=== PATIENT | male | born 1990 | race Two or more races ===

== ENCOUNTER 2019-12-09 02:43 | Emergency (ER) | payer BC ==
[2019-12-09] MEDS ORDERED: Acetaminophen 500 MG Tab PO ONE (03:01)
[2019-12-09] MEDS ORDERED: Ketorolac 60 MG/2 ML SDV IM ONE (03:05)
--- NOTE | 2019-12-09 03:08 | EDM.PDOC ---
ED HPI GENERAL MEDICAL PROBLEM - General Chief Complaint: General Stated Complaint: FLU SYMPTOMS Time Seen by Provider: 12/09/19 03:00 - History of Present Illness INITIAL COMMENTS - FREE TEXT/NARRATIVE: HISTORY AND PHYSICAL: History of present illness: The patient is a 29-year-old male who did not get his influenza shot and who presents with 1-1/2 days of diffuse body aches and pains sore throat occasional cough congestion and fevers. He has been taking Tylenol and ibuprofen and he does not feel like the fever is breaking. He last took Tylenol and ibuprofen about 8 PM, approximately 7 hours ago. He says he has been trying to push hydration and is not having abdominal pain vomiting or diarrhea. Review of systems: As per history of present illness and below otherwise all systems reviewed and negative. Past medical history: As per history of present illness and as reviewed below otherwise noncontributory. Surgical history: As per history of present illness and as reviewed below otherwise noncontributory. Social history: No reported history of drug or alcohol abuse. Family history: As per history of present illness and as reviewed below otherwise noncontributory. Physical exam: General: Well-developed well-nourished man who is nontoxic and vital signs are noted by me HEENT: Atraumatic, normocephalic, pupils reactive, negative for conjunctival pallor or scleral icterus, mucous membranes moist, throat clear of exudates but there is oropharyngeal erythema without cervical adenopathy or nuchal rigidity, neck supple, nontender, trachea midline. Lungs: Clear to auscultation, breath sounds equal bilaterally, chest nontender. No wheezing stridor or work of breathing Heart: S1S2, regular rhythm and slightly tachycardic rate on my evaluation no overt murmurs Abdomen: Soft, nondistended, nontender. Negative for masses or hepatosplenomegaly. Negative for costovertebral tenderness. Pelvis: Deferred Genitourinary: Deferred. Rectal: Deferred. Extremities: Atraumatic, negative for cords or calf pain. Neurovascular unremarkable. Neuro: Awake, alert, oriented. Cranial nerves II through XII unremarkable. Cerebellum unremarkable. Motor and sensory unremarkable throughout. Exam nonfocal. Diagnostics: Rapid strep influenza Therapeutics: P.o. fluids Tylenol Toradol Impression: Influenza A Definitive disposition and diagnosis as appropriate pending reevaluation and review of above. Throat Pain Score (Numeric/FACES): 4 - Related Data Allergies Allergy/AdvReac Type Severity Reaction Status Date / Time No Known Allergies Allergy Verified 12/09/19 03:05 Home Meds: Home Meds . [No Known Home Meds] 12/09/19 [History] Past Medical History HEENT History: Reports: None Cardiovascular History: Reports: None Respiratory History: Reports: None Gastrointestinal History: Reports: None Genitourinary History: Reports: None Musculoskeletal History: Reports: None Neurological History: Reports: None Psychiatric History: Reports: None Endocrine/Metabolic History: Reports: None Hematologic History: Reports: None Immunologic History: Reports: None Oncologic (Cancer) History: Reports: None Dermatologic History: Reports: None - Infectious Disease History Infectious Disease History: Reports: None - Past Surgical History Head Surgeries/Procedures: Reports: None HEENT Surgical History: Reports: Naso-Sinus Surgery Social & Family History - Family History Family Medical History: Noncontributory - Caffeine Use Caffeine Use: Reports: Coffee ED ROS GENERAL - Review of Systems Review Of Systems: Comprehensive ROS is negative, except as noted in HPI. ED EXAM, GENERAL - Physical Exam Exam: See Below (See dictation) Course - Vital Signs Last Recorded V/S: Last Vital Signs Temp 38.3 C H 12/09/19 03:28 Pulse 109 H 12/09/19 03:01 Resp 20 12/09/19 03:01 BP 123/65 12/09/19 03:01 Pulse Ox 94 L 12/09/19 03:01 - Orders/Labs/Meds Orders: Active Orders 24 hr Category Date Time Status CULTURE STREP A CONFIRMATION [RM] Stat Lab 12/09/19 02:57 Results STREP SCRN A RAPID W CULT CONF [RM] Stat Lab 12/09/19 02:57 Results Meds: Medications Discontinued Medications Generic Name Dose Route Start Last Admin Trade Name Freq PRN Reason Stop Dose Admin Acetaminophen 1,000 mg 12/09/19 03:01 12/09/19 03:28 Tylenol Extra Strength PO 12/09/19 03:02 1,000 mg ONETIME ONE Administration Ketorolac Tromethamine 60 mg 12/09/19 03:05 12/09/19 03:28 Toradol IM 12/09/19 03:06 60 mg ONETIME ONE Administration Departure - Departure Time of Disposition: 03:47 Disposition: Home, Self-Care 01 Condition: Good Clinical Impression: Influenza A - Discharge Information Referrals: PCP,None [Primary Care Provider] - Forms: ED Department Discharge Additional Instructions: The following information is given to patients seen in the emergency department who are being discharged to home. This information is to outline your options for follow-up care. We provide all patients seen in our emergency department with a follow-up referral. The need for follow-up, as well as the timing and circumstances, are variable depending upon the specifics of your emergency department visit. If you don't have a primary care physician on staff, we will provide you with a referral. We always advise you to contact your personal physician following an emergency department visit to inform them of the circumstance of the visit and for follow-up with them and/or the need for any referrals to a consulting specialist. The emergency department will also refer you to a specialist when appropriate. This referral assures that you have the opportunity for followup care with a specialist. All of these measure are taken in an effort to provide you with optimal care, which includes your followup. Under all circumstances we always encourage you to contact your private physician who remains a resource for coordinating your care. When calling for followup care, please make the office aware that this follow-up is from your recent emergency room visit. If for any reason you are refused follow-up, please contact the [facility] emergency department at and ask to speak to the emergency department charge nurse. [facility] Primary care- Internal [place] [address] Push hydration and use Tylenol, 1000 mg or 2 extra strength every 6 hours, and Motrin 800 mg every 8 hours for fever management. Rest and please call and schedule a follow-up appoint in the clinic for reevaluation and further care. Your prescription for Tamiflu keeping in mind that this is not a cure for influenza but will shorten the duration and severity of your symptoms. Sepsis Event Note - Evaluation Sepsis Screening Result: No Definite Risk - Focused Exam Vital Signs: Vital Signs Temp Temp Pulse Resp BP Pulse Ox 12/09/19 03:28 38.3 C H 12/09/19 03:01 38.3 C H 109 H 20 123/65 94 L Date Exam was Performed: 12/09/19 Time Exam was Performed: 03:46 - My Orders Last 24 Hours: My Active Orders 12/09/19 02:57 CULTURE STREP A CONFIRMATION [RM] Stat STREP SCRN A RAPID W CULT CONF [RM] Stat - Assessment/Plan Last 24 Hours: My Active Orders 12/09/19 02:57 CULTURE STREP A CONFIRMATION [RM] Stat STREP SCRN A RAPID W CULT CONF [RM] Stat
== END 2019-12-09 04:06 | disposition home or self-care (01) ==
LOC: MW.ED 02:43
DX: J10.1 Influenza due to other identified influenza virus with other respiratory manifestations (principal)
CPT/HCPCS: 87081; 87804; 87880; 96372; 99283; A9270; J1885

== ENCOUNTER 2020-12-31 09:34 | Emergency (ER) | payer BC ==
--- NOTE | 2020-12-31 09:37 | EDM.PDOC ---
ED HPI GENERAL MEDICAL PROBLEM - General Stated Complaint: SWELLING LT EYE Time Seen by Provider: 12/31/20 09:35 Source of Information: Reports: Patient History Limitations: Reports: No Limitations - History of Present Illness INITIAL COMMENTS - FREE TEXT/NARRATIVE: 30-year-old male presents for left eye swelling/facial pain x4 days. Patient is a good historian. 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 He notes that he has not had any long-term issues with us other than sometimes the left side of his face gets very cold when he is outside due to the metal. He notes that for the last 4 days he has had a mild pain worse with extraocular movements in his left forehead tracking into his left nose and left maxillary face. He is also noticed mild swelling particularly of his left upper eyelid. He denies any sort of nasal congestion, eye discharge or crustiness. He notes that he was using his 's spray decongestant which seem to be helping initially but then the swelling got worse yesterday so he discontinued it. He denies any fevers or any other systemic symptoms. He states due to his history of cancer and facial reconstruction he is concerned about some sort of growth and is requesting advanced imaging. Left Eye Pain Score (Numeric/FACES): 3 - Related Data Allergies Allergy/AdvReac Type Severity Reaction Status Date / Time No Known Allergies Allergy Verified 12/31/20 09:55 Home Meds: Home Meds Amoxicillin/Potassium Clav [Augmentin 875-125 Tablet] 1 each PO BID #14 tablet 12/31/20 [Rx] Past Medical History HEENT History: Reports: None Cardiovascular History: Reports: None Respiratory History: Reports: None Gastrointestinal History: Reports: None Genitourinary History: Reports: None Musculoskeletal History: Reports: None Other Musculoskeletal History: R wrist sx Neurological History: Reports: None Psychiatric History: Reports: None Endocrine/Metabolic History: Reports: None Hematologic History: Reports: None Immunologic History: Reports: None Oncologic (Cancer) History: Reports: None Dermatologic History: Reports: None - Infectious Disease History Infectious Disease History: Reports: None - Past Surgical History Head Surgeries/Procedures: Reports: None HEENT Surgical History: Reports: Naso-Sinus Surgery Social & Family History - Family History Family Medical History: No Pertinent Family History - Caffeine Use Caffeine Use: Reports: Coffee ED ROS GENERAL - Review of Systems Review Of Systems: Comprehensive ROS is negative, except as noted in HPI. ED EXAM, GENERAL - Physical Exam Exam: See Below Exam Limited By: No Limitations General Appearance: Alert, WD/WN, No Apparent Distress Eye Exam: Bilateral Eye: EOMI, Foreign Body (none identified), PERRL Nose: Normal Inspection Throat/Mouth: Normal Voice, No Airway Compromise Head: Atraumatic, Normocephalic, Other (TTP of left frontal sinus, left maxillary sinus, very mild swelling of L upper eyelid without erythema or warmt h) Neck: Normal Inspection, Supple Respiratory/Chest: No Respiratory Distress, Lungs Clear, Normal Breath Sounds, No Accessory Muscle Use Cardiovascular: Normal Peripheral Pulses, Regular Rate, Rhythm Extremities: Normal Inspection Neurological: Alert, Normal Gait Psychiatric: Normal Affect, Normal Mood Skin Exam: Warm, Dry, Intact, Normal Color Course - Vital Signs Last Recorded V/S: Last Vital Signs Temp 97.2 F 12/31/20 09:55 Pulse 67 12/31/20 10:57 Resp 16 12/31/20 10:57 BP 133/90 12/31/20 10:57 Pulse Ox 97 12/31/20 10:57 - Orders/Labs/Meds Orders: Active Orders 24 hr Category Date Time Status Maxillofacial with CM [Max Facial Sinus w Cont] [CT] Exams 12/31/20 10:02 T anna Stat Labs: Laboratory Tests 12/31/20 12/31/20 Range/Units 10:12 10:12 WBC 8.09 (4.0-11.0) K/uL RBC 5.18 (4.50-5.90) M/uL Hgb 15.2 (13.0-17.0) g/dL Hct 44.3 (38.0-50.0) % MCV 85.5 (80.0-98.0) fL MCH 29.3 (27.0-32.0) pg MCHC 34.3 (31.0-37.0) g/dL RDW Std Deviation 40.2 (28.0-62.0) fl RDW Coeff of Tan 13 (11.0-15.0) % Plt Count 201 (150-400) K/uL MPV 9.60 (7.40-12.00) fL Nucleated RBC % 0.0 /100WBC Nucleated RBCs # 0 K/uL Sodium 142 (136-148) mmol/L Potassium 4.0 (3.5-5.1) mmol/L Chloride 105 (98-107) mmol/L Carbon Dioxide 24.1 (21.0-32.0) mmol/L BUN 13 (7.0-18.0) mg/dL Creatinine 0.8 (0.8-1.3) mg/dL Est Cr Clr Drug Dosing 149.81 mL/min Estimated GFR (MDRD) > 60.0 ml/min Glucose 100 (74-106) mg/dL Calcium 8.7 (8.5-10.1) mg/dL Meds: Medications Discontinued Medications Generic Name Dose Route Start Last Admin Trade Name Miles PRN Reason Stop Dose Admin Iopamidol 100 ml 12/31/20 10:57 12/31/20 10:57 Isovue-370 (76%) IVPUSH 12/31/20 10:58 100 ml ONETIME ONE Administration - Re-Assessments/Exams Free Text/Narrative Re-Assessment/Exam: 12/31/20 10:09 We will get basic labs, will get CT max face to evaluate for periorbital versus orbital cellulitis versus mass. If all of patient's labs and images are grossly unremarkable I will discharge patient with a prescription for Augmentin to treat for preorbital cellulitis and recommend that he follow-up with a specialist for further work-up if symptoms do not improve after course of antibiotics. 12/31/20 11:16 Labs look unremarkable. We will follow-up CT imaging and disposition accordingly. Departure - Departure Time of Disposition: 11:40 Disposition: Home, Self-Care 01 Condition: Good Clinical Impression: Mucocele of frontal sinus Sinusitis Qualifiers: Sinusitis location: frontal Chronicity: acute Recurrence: non-recurrent Qualified Code(s): J01.10 - Acute frontal sinusitis, unspecified - Discharge Information Prescriptions: Amoxicillin/Potassium Clav [Augmentin 875-125 Tablet] 1 each PO BID #14 tablet Instructions: Sinusitis, Adult, [id number] Referrals: PCP,None [Primary Care Provider] - Additional Instructions: You were labs are normal. Your CT scan report has been provided in your discharge paperwork. The radiologist does see areas of soft tissue inflammation which can be caused by an infection like sinusitis. For this reason you were given an antibiotic called Augmentin that you should try for the next week. However the soft tissue stranding is not entirely consistent with an infection. You also have areas of soft tissue that seem to be protruding into your left orbit which are the bones that hold your eyes. According to the radiologist this is most consistent with a mucocele. A mucocele is an overgrowth of the sinuses into an area that they should not be. This is likely due to your prior history of surgery. These are often very slow-growing and are not usually associated with cancer. This does need to be further evaluated as they may need to be surgically removed and can cause problems with your eye including loss of mobility and loss of vision in the eye. You will likely need an MRI to better characterize exactly what these growths are and to help the doctor determine whether or not you will need surgery. You will need to follow-up with an salvage determiner within the next week. If you develop inability to move your eye or loss of vision in the eye then you should come back to the emergency department. We do have an salvage determiner, Dr. Clif Rodriguez, here in [place] who is usually good about getting in our ER patients. His information has been provided below. This may end up being too specialized case for him, but he will likely be able to at least get the MRI and get the work-up started. You may n eed to go to a tertiary care center for specialist evaluation considering the uniqueness of your case. Dr. Clif Rodriguez MD Opthalmology [phone] [place] [address], [place] [id number] [address] The following information is given to patients seen in the emergency department who are being discharged to home. This information is to outline your options for follow-up care. We provide all patients seen in our emergency department with a follow-up referral. The need for follow-up, as well as the timing and circumstances, are variable depending upon the specifics of your emergency department visit. If you don't have a primary care physician on staff, we will provide you with a referral. We always advise you to contact your personal physician following an emergency department visit to inform them of the circumstance of the visit and for follow-up with them and/or the need for any referrals to a consulting specialist. The emergency department will also refer you to a specialist when appropriate. This referral assures that you have the opportunity for follow-up care with a specialist. All of these measure are taken in an effort to provide you with optimal care, which includes your follow-up. Under all circumstances we always encourage you to contact your private physician who remains a resource for coordinating your care. When calling for follow-up care, please make the office aware that this follow-up is from your recent emergency room visit. If for any reason you are refused follow-up, please contact the [facility] Emergency Department at and asked to speak to the emergency department charge nurse. Please follow up with your primary care physician. If you do not have a primary care physician, see below: [facility] [address] [place] [id number] [facility] [address] [place] [address] [facility] [address] [place] [id number] Sepsis Event Note (ED) - Focused Exam Vital Signs: Vital Signs Temp Pulse Resp BP Pulse Ox 12/31/20 10:57 67 16 133/90 97 12/31/20 09:55 97.2 F 79 16 139/97 H 96 - My Orders Last 24 Hours: My Active Orders 12/31/20 10:02 Maxillofacial with CM [Max Facial Sinus w Cont] [CT] Stat - Assessment/Plan Last 24 Hours: My Active Orders 12/31/20 10:02 Maxillofacial with CM [Max Facial Sinus w Cont] [CT] Stat
[2020-12-31 10:33] LABS: BLOOD UREA NITROGEN,BUN 13 mg/dL (7.0-18.0); CARBON DIOXIDE,CO2 24.1 mmol/L (21.0-32.0); CHLORIDE,CL 105 mmol/L (98-107); GLUCOSE RANDOM 100 mg/dL (74-106); SODIUM,NA 142 mmol/L (136-148)
[2020-12-31] MEDS ORDERED: Iopamidol 755 Mg/ML 100 ML Bottle IVPUSH ONE (10:57)
--- NOTE | 2020-12-31 11:53 | CT ---
Indication History of facial tumor. Left eye pain and swelling. TECHNIQUE: CT images were acquired through the facial bones following administration intravenous contrast. COMPARISON: None. FINDINGS: Postsurgical changes of left nasal cavity exenteration and medial left maxillectomy. Surgical wire extends across the glabella and frontal recesses. Postsurgical changes involving the frontal calvarium and anterior zygomatic bones bilaterally. No fluid collection or inflammatory stranding. Large left and small right lamina papyracea defects. There is herniation of the left medial rectus and superior oblique muscles into the left lamina papyracea defect. Expansile soft tissue attenuation opacifies the frontal and anterior ethmoid sinuses and is associated with dehiscence of the orbital roofs. Extension of lobular soft tissue attenuation into the right medial and bilateral superomedial extraconal orbits with mild mass effect on the right medial rectus and right superior oblique muscles. The optic sheath complexes and globes are symmetric. No retrobulbar hematoma or stranding. Mild left maxillary sinus mucosal thickening. No air-fluid levels to suggest acute sinusitis. Torus palatinus. The mastoid air cells are underpneumatized. Small mastoid left mastoid effusion. IMPRESSION: 1. No inflammatory stranding or abscess. 2. Expansile soft tissue attenuation opacifies the frontal and anterior ethmoid sinuses and extends into the extraconal orbits. Differential considerations include mucocele, though a neoplastic process could also have this appearance. Comparison with prior imaging would be helpful to assess for interval change. If no prior images are available, MRI and clinical follow-up would be recommended. 3. Postsurgical changes of left nasal cavity exenteration and medial left maxillectomy. 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 There is herniation of the medial left rectus and left superior oblique muscles into the left lamina papyracea defect. Please note that all CT scans at this facility use dose modulation, iterative reconstruction, and/or weight-based dosing when appropriate to reduce radiation dose to as low as reasonably achievable. Dictated by Cristopher Dickens MD @ Dec 31 2020 11:28AM Signed by Dr. Cristopher Dickens @ Dec 31 2020 11:51AM
== END 2020-12-31 12:13 | disposition home or self-care (01) ==
LOC: MW.ED 09:34
DX: J01.10 Acute frontal sinusitis, unspecified (principal)
CPT/HCPCS: 36415; 70487; 80048; 85027; 99284; Q9967; 99282